=== PATIENT | female | born 1990 | race Caucasian/White ===

== ENCOUNTER 2021-08-10 19:33 | Emergency (ER) | payer SELFPAY ==
[~2021-08-10] VITALS: Ht 152.4 cm; Wt 72.3 kg
[2021-08-10] MEDS ORDERED: IV NORMAL SALINE 1,000ML 1,000 ML IV ONE (20:00)
--- NOTE | 2021-08-10 20:07 | PHYS DOC ---
Past History Additional Past Medical Histor: personality d/o, PTSD (NORMAN REYES APRN) Past Surgical History: , Other Additional Past Surgical Histo: abdominoplasty (NORMAN REYES APRN) General Adult EDM: Chief Complaint: OVERDOSE HPI: HPI: Patient is a 31-year-old female who presents to the emergency department via EMS for suicidal ideation and overdose. Patient reports that she has been taking 2 tablets of 0.5 mg Xanax every 10 minutes since 630 this morning.'s approximately 6 mg every hour. Patient states she did this in an attempt to kill herself. Patient has a history of a personality disorder, anxiety, depression, bipolar 1, PTSD. Patient is reporting fatigue and abdominal cramping. She denies nausea, vomiting, alcohol or drug use, homicidal ideation. She is alert and oriented x4. Patient reports that she was inpatient at [facility] and released on . (NORMAN REYES APRN) Review of Systems: Review of Systems: Constitutional: Denies fever or chills Eyes: Denies change in visual acuity HENT: Denies nasal congestion or sore throat Respiratory: Denies cough or shortness of breath Cardiovascular: Denies chest pain or edema GI: See HPI : Denies dysuria Musculoskeletal: Denies back pain or joint pain Integument: Denies rash Neurologic: See HPI Endocrine: Denies polyuria or polydipsia Lymphatic: Denies swollen glands Psychiatric: See HPI (NORMAN REEYS APRN) Allergies: Allergies: Allergies Coded Allergies Type Severity Reaction Last Updated Verified No Known Drug Allergies 08/10/21 No (NORMAN REYES APRN) Physical Exam: PE: Constitutional: Well developed, well nourished, no acute distress, non-toxic appearance. [] HENT: Normocephalic, atraumatic, bilateral external ears normal, oropharynx moist, no oral exudates, nose normal. [] Eyes: PERRL, 3 mm bilaterally, no horizontal nystagmus, EOMI, conjunctiva normal, no discharge. [] Neck: Normal range of motion, no tenderness, supple, no stridor. [] Cardiovascular:Heart rate regular rhythm, no murmur [] Lungs & Thorax: Bilateral breath sounds clear to auscultation [] Abdomen: Bowel sounds normal, soft, no tenderness, no masses, no abdominal guarding or rigidity, no pulsatile masses. [] Skin: Warm, dry, no erythema, no rash. [] Back: No tenderness, normal range of motion Extremities: No tenderness, no cyanosis, no clubbing, ROM intact, no edema. [] Neurologic: Alert and oriented X 3, normal motor function, normal sensory function, no focal deficits noted, patient appears drowsy. [] Psychologic: Affect normal, judgement normal, mood normal. [] (NORMAN REYES APRN) Current Patient Data: Labs: Laboratory Tests Test 08/10/21 19:00 08/10/21 20:05 SARS-CoV-2 Antigen (Rapid) Negative White Blood Count 9.2 x10^3/uL Red Blood Count 3.99 x10^6/uL Hemoglobin 12.2 g/dL Hematocrit 36.0 % Mean Corpuscular Volume 90 fL Mean Corpuscular Hemoglobin 31 pg Mean Corpuscular Hemoglobin Concent 34 g/dL Red Cell Distribution Width 14.0 % Platelet Count 276 x10^3/uL Neutrophils (%) (Auto) 48 % Lymphocytes (%) (Auto) 37 % Monocytes (%) (Auto) 8 % Eosinophils (%) (Auto) 5 % Basophils (%) (Auto) 1 % Neutrophils # (Auto) 4.4 x10^3uL Lymphocytes # (Auto) 3.4 x10^3/uL Monocytes # (Auto) 0.8 x10^3/uL Eosinophils # (Auto) 0.5 x10^3/uL Basophils # (Auto) 0.1 x10^3/uL Sodium Level 142 mmol/L Potassium Level 3.9 mmol/L Chloride Level 105 mmol/L Carbon Dioxide Level 29 mmol/L Anion Gap 8 Blood Urea Nitrogen 15 mg/dL Creatinine 1.0 mg/dL Estimated GFR (Cockcroft-Gault) 64.7 BUN/Creatinine Ratio 15 Glucose Level 90 mg/dL Calcium Level 8.9 mg/dL Total Bilirubin 0.2 mg/dL Aspartate Amino Transf (AST/SGOT) 18 U/L Alanine Aminotransferase (ALT/SGPT) 28 U/L Alkaline Phosphatase 67 U/L Total Protein 7.1 g/dL Albumin 3.5 g/dL Albumin/Globulin Ratio 1.0 Salicylates Level 1.9 mg/dL Salicylate Last Dose Date Unknown Salicylate Last Dose Time Unknown Acetaminophen Level < 2.0 mcg/mL Acetaminophen Last Dose Date Unknown Acetaminophen Last Dose Time Unknown Ethyl Alcohol Level < 10 mg/dL Current Medications Medications (Trade) Dose Ordered Sig/Yady Route PRN Reason Start Time Stop Time Status Last Admin Dose Admin Sodium Chloride 1,000 ml @ 1,000 mls/hr 1X ONCE IV 08/10/21 20:00 08/10/21 20:59 DC 08/10/21 20:20 Vital Signs: Vital Signs Date Time Temp Pulse Resp B/P (MAP) Pulse Ox O2 Delivery O2 Flow Rate FiO2 08/10/21 19:41 98.0 78 16 133/86 (102) 96 (NORMAN REYES APRN) EKG: EKG: [] EKG performed by ER staff at 2014 shows sinus rhythm with a rate of 91, no STEMI read by Dr. Williamson Repeat EKG performed by ER staff at 2108 shows sinus rhythm with a rate of 73, no STEMI or significant change from previous EKG (NORMAN REYES APRN) EKG: My interpretation 2 rd EKG shows a sinus rhythm at 72 bpm. No acute interval change. Time of this EKG shows a 2302 hrs.\ My interpretation 30 EKG shows a sinus rhythm at 91 bpm. No acute morphology. No acute interval change. Does have a borderline prolonged QT interval at 392 ms. QTC is 483 ms. Some borderline T abnormalities but no findings of acute STEMI with contralateral changes. (HUEY WILLIAMSON MD) Radiology/Procedures: Radiology/Procedures: [] (NORMAN REYES APRN) Heart Score: C/O Chest Pain: N/A Risk Factors: Risk Factors: DM, Current or recent (<one month) smoker, HTN, HLP, family history of CAD, obesity. Risk Scores: Score 0 - 3: 2.5% MACE over next 6 weeks - Discharge Home Score 4 - 6: 20.3% MACE over next 6 weeks - Admit for Clinical Observation Score 7 - 10: 72.7% MACE over next 6 weeks - Early Invasive Strategies (NORMAN REYES APRN) Course & Med Decision Making: Course & Med Decision Making Pertinent Labs and Imaging studies reviewed. (See chart for details) [] Patient presents to the emergency department after ingesting 6 mg of Xanax every 8 hours since 630 this morning. Which equates to approximately 72 mg today. Patient is reporting suicidal ideation. Poison control was contacted. They advised ordering acetaminophen and salicylate level. They also advised supportive care. They recommended serial EKGs every 1 to 2 hours x 3. Patient is placed on suicide precautions and one-to-one observation was ordered. Work- up in the ER consisted of blood work to medically clear patient as well as EKGs. Psychiatric assessment team will be consulted. We will continue to monitor patient for any changes in vital signs, [employer] depression, bradycardia or hypotension. At this time patient's vital signs are stable. She is ambulatory without assistance with a steady gait. Patient's lab work is unremarkable. Her acetaminophen level is negative. Her salicylate level is 1.9. Negative rapid COVID. Patient is medically cleared at this time to be evaluated by member of the psychiatric assessment team. 2114: I discussed patient with PAT and they are en route to assess patient. 2199: I discussed patients case with supervising physician, he will assume patient care at this time due to shift change. (NORMAN REYES APRN) Course & Med Decision Making Pt. medically stable for inpatient admission to [facility]. Poison control advises that need observation for 3 hours for toxic side effects. ( Pt. has been monitored in excess of 8 hrs at this point- with no obvious sign of toxic side effects- It would appear at this time did not take the amount of benzodiazepines that she reports) Patient monitored in the ED. Endorsed to Dr. Paige at shift change. Still awaiting PCR COVID. [address] Paige chart for details of day shift. Still awaiting placement. Pt. accepted at [facility].- awaiting transport Impression: 1. Suicidal ideation 2. Reports a suicidal attempt by overdose of benzodiazepines 3. History of depression 4. History of anxiety 5. Drug screen positive for benzodiazepines and marijuana. (HUEY WILLIAMSON MD) Course & Med Decision Making I took over care of patient from Dr. Williamson at 0600. The patient remains in stable condition with no current somatic complaints at this time. Patient is awaiting placement at an inpatient psychiatric facility. The patient was reevaluated this morning by Nick of [facility]. We will continue to find an open bed for patient transfer and will continue to monitor patient until disposition finalized. August 11, 2021 at 1747: Patient accepted for inpatient psychiatric care at [facility] Ruiz. Patient will be transferred by ground ambulance this evening. (TAMIKO PAIGE MD) Dragon Disclaimer: Dragon Disclaimer: This electronic medical record was generated, in whole or in part, using a voice recognition dictation system. (NORMAN REYES APRN) Departure Departure: Impression: Primary Impression: Suicidal ideation Disposition: 65 [facility] Condition: STABLE Attending Signature Attending Signature I have participated in the care of this patient and I have reviewed and agree with all pertinent clinical information above including history, exam, and recommendations. (HUEY WILLIAMSON MD) Dragon Disclaimer This chart was dictated in whole or in part using Voice Recognition software in a busy, high-work load, and often noisy Emergency Department environment. It may contain unintended and wholly unrecognized errors or omissions. (HUEY WILLIAMSON MD) Dragon Disclaimer This chart was dictated in whole or in part using Voice Recognition software in a busy, high-work load, and often noisy Emergency Department environment. It may contain unintended and wholly unrecognized errors or omissions. (HUEY WILLIAMSON MD) Dragon Disclaimer This chart was dictated in whole or in part using Voice Recognition software in a busy, high-work load, and often noisy Emergency Department environment. It may contain unintended and wholly unrecognized errors or omissions. (HUEY WILLIAMSON MD) NORMAN REYES APRN August 10, 2021 20:07 HUEY WILLIAMSON MD August 10, 2021 23:12 TAMIKO PAIGE MD August 11, 2021 10:44
[2021-08-10 20:29] LABS: BASO # 0.1 x10^3/uL (0.0-0.2); BASO % 1 % (0-3); EOS # 0.5 x10^3/uL (0.0-0.7); EOS % 5 % (0-3); HEMOGLOBIN 12.2 g/dL (12.0-15.5); LYMPH # 3.4 x10^3/uL (1.0-4.8); LYMPH % 37 % (24-48); MEAN CORPUSCULAR HEMOGLOBIN 31 pg (25-35); MEAN CORPUSCULAR HGB CONC 34 g/dL (31-37); MEAN CORPUSCULAR VOLUME 90 fL (79-100); MONO # 0.8 x10^3/uL (0.0-1.1); MONO % 8 % (0-9); NEUT # 4.4 x10^3uL (1.8-7.7); NEUT % 48 % (31-73); PLATELET COUNT 276 x10^3/uL (140-400); RED BLOOD COUNT 3.99 x10^6/uL (3.50-5.40); WHITE BLOOD COUNT 9.2 x10^3/uL (4.0-11.0)
[2021-08-10 20:40] LABS: CALCIUM 8.9 mg/dL (8.5-10.1); GFR 64.7; POTASSIUM 3.9 mmol/L (3.5-5.1)
[2021-08-10 20:45] LABS: ALBUMIN 3.5 g/dL (3.4-5.0); TOTAL BILIRUBIN 0.2 mg/dL (0.2-1.0); TOTAL PROTEIN 7.1 g/dL (6.4-8.2)
[2021-08-10 20:46] LABS: SALIC 1.9 mg/dL (2.8-20.0)
[2021-08-10 20:47] LABS: ACETAMIN < 2.0 mcg/mL (10-30); ETHANOL < 10 mg/dL (0-10)
[2021-08-10 21:47] LABS: BACTERIA,URINE 0 /HPF (0-FEW); CLARITY,URINE CLEAR; COLOR,URINE YELLOW; GLUCOSE,URINE NEG (NEG); NITRITE,URINE NEG (NEG); RBC,URINE 0 /HPF (0-2); SQUAMOUS EPITHELIAL CELL,UR OCC /LPF; UROBILINOGEN,URINE 0.2 mg/dL (0.2 mg/dL); WBC,URINE OCC /HPF (0-4)
[2021-08-10 22:02] LABS: BARBITURATES NEG (NEG); BENZODIAZEPINES POS (NEG); CANNABINOIDS POS (NEG); COCAINE NEG (NEG); METHADONE NEG (NEG); OPIATES NEG (NEG); PHENCYCLIDINE NEG (NEG)
[2021-08-10 22:04] LABS: AMPHETAMINE/METHAMPHETAMINE NEG (NEG)
[2021-08-10] MEDS ORDERED: ACETAMINOPHEN 500 MG TABLET PO ONE (23:30)
[2021-08-11 13:27] VITALS: BP 133/80
[2021-08-11] MEDS ORDERED: clonazePAM 1 MG TABLET PO STA (13:30)
[2021-08-11] MEDS ORDERED: DIVALPROEX 125 MG CAP.SPRINK PO STA (14:05)
[2021-08-11] MEDS ORDERED: MELOXICAM 7.5 MG TABLET PO ONE (15:00)
[2021-08-11] MEDS ORDERED: tiZANidine 4 MG TABLET. PO ONE (17:45)
[2021-08-11] MEDS ORDERED: tiZANidine 4 MG TABLET. ONE (17:50)
[2021-08-11 19:40] VITALS: BP 140/78
[2021-08-11] MEDS ORDERED: NICOTINE 21MG PATCH. TD ONE (20:00)
== END 2021-08-11 20:35 ==
LOC: ER 19:33
DX: T42.4X2A Poisoning by benzodiazepines, intentional self-harm, initial encounter (principal); F41.9 Anxiety disorder, unspecified; F32.9 Major depressive disorder, single episode, unspecified; Z20.822 Contact with and (suspected) exposure to COVID-19; Y92.89 Other specified places as the place of occurrence of the external cause
CPT/HCPCS: 36415; 80053; 80307; 80329; 81001; 81025; 85025; 87426; 93005; 96360; 96361; 99285; G0480; J7030; U0003